=== PATIENT | female | born 1985 | race Caucasian/White ===

== ENCOUNTER 2016-05-08 11:26 | Emergency (ER) | payer MEDICAID ==
[2015-04-30 02:25] VITALS: BMI 43.0
[~2016-05-08 11:26] MED LIST: DEMEROL50 MG PO; IBUPROFEN600 MG PO
[2016-05-08 12:41] LABS: BASOPHILS 0.1 % (0.0-2.0); EOSINOPHILS 1.3 % (0-7); HEMATOCRIT 31.5 % (36.0-48.0); IMMATURE GRANULOCYTES 0.1 % (0-5); LYMPHOCYTES 21.1 % (15-50); MCH 26.6 pg (26.0-34.0); MCHC 31.7 g/dL (31.0-37.0); MCV 83.8 fL (80.0-100.0); MONOCYTES 4.5 % (2-11); NEUTROPHILS 72.9 % (40-80); PLATELET COUNT 282 10x3/uL (130-400); RBC 3.76 10x6/uL (4.00-5.40); RDW 13.9 % (11.5-14.5); WBC 11.5 10x3/uL (4.8-10.8)
[2016-05-08 13:06] LABS: ALBUMIN 2.4 g/dL (3.4-5.0); ALKALINE PHOSPHATASE 119 U/L (46-116); ALT (SGPT) 10 U/L (10-68); CALC OSMOLALITY 275 mosm/kg (275-300); CALCIUM 8.5 mg/dL (8.5-10.1); CHLORIDE - SERUM 107 mmol/L (98-107); CREATININE - SERUM 0.6 mg/dL (0.6-1.3); GLUCOSE 105 mg/dL (74-106); POTASSIUM - SERUM 3.5 mmol/L (3.5-5.1); PROTEIN - SERUM 6.6 g/dL (6.4-8.2); SODIUM 140 mmol/L (136-145); UREA NITROGEN 4 mg/dL (7-18); eGFR NON AFRICAN AMERICAN > 90 mL/min (90-120)
== END 2016-05-08 15:53 | disposition home or self-care (01) ==
LOC: D.ER 11:26
PROVIDERS: Emergency Medicine
DX: B34.9 Viral infection, unspecified (principal); F17.200 Nicotine dependence, unspecified, uncomplicated

== ENCOUNTER 2016-05-19 10:29 | Inpatient (IN) | payer MEDICAID ==
[~2016-05-19] VITALS: Ht 170.2 cm; Wt 124.7 kg
[2016-05-19] VITALS (10 sets, daily range): BP systolic 117–132; BP diastolic 58–81; Ht 170.2 cm; Wt 124.7 kg
[2016-05-19 10:51] LABS: HEMATOCRIT 34.1 % (36.0-48.0); HEMOGLOBIN 10.9 g/dL (12-16); MCH 26.7 pg (26.0-34.0); MCV 83.6 fL (80.0-100.0); MEAN PLATELET VOLUME 9.3 fL (7.4-10.4); RBC 4.08 10x6/uL (4.00-5.40); RDW 13.8 % (11.5-14.5)
[2016-05-19 11:05] LABS: HIV 1 & 2- RAPID SCREEN NEGATIVE (NEGATIVE)
[2016-05-19 12:32] LABS: APPEARANCE HAZY (CLEAR); BILIRUBIN NEGATIVE (NEGATIVE); COLOR YELLOW (YELLOW); GLUCOSE NEGATIVE (NEGATIVE); KETONE NEGATIVE (NEGATIVE); NITRITE NEGATIVE (NEGATIVE); PROTEIN NEGATIVE (NEGATIVE); UROBILINOGEN NORMAL (NORMAL)
[2016-05-19 12:35] LABS: BACTERIA MODERATE /hpf (NONE SEEN); LEUKOCYTE ESTERASE TRACE (NEGATIVE); RED CELLS - URINE OCC /hpf (0-5); WHITE CELLS - URINE 0-5 /hpf (0-5)
--- NOTE | 2016-05-19 14:17 | NUR ---
BABY GIRL BORN AT [address] AT 1400 5.9 OZ 19.25 INCH
--- NOTE | 2016-05-19 15:04 | NUR ---
PALPATED FUNDUS FIRM AND MIDLINE
--- NOTE | 2016-05-19 16:57 | NUR ---
PT IS RECEIVED FROM RECOVERY LYING IN BED. SHE IS AWAKE AND ALERT. LUNGS- CLEAR. HEART- RRR. ABD- SOFT, TENDER, FUNDUS FIRM UMBILICUS. EXT- NO EDEMA. SCD'S INTACT. PULSES PALPABLE. IV INTACT AND PATENT R FOREARM. POWELL INTACT AND SECURED R THIGH. INCISION - WITH BULKY DRESSING . CLEAN DRY AND INTACT. ICE PACK APPLIED. PT INSTRUCTED ON BOTTOMING ROOM SUPERVISOR, POWELL, SCD'S, INCENTIVE DONTRELL AND TURNING COUGHING AND DEPP BREATHING. PT IS ON A CLEAR LIQUID DIET.
--- NOTE | 2016-05-19 17:10 | NUR ---
PT IS RESTING IN BED. FAMILY AT BEDSIDE. PT OFFERS NO COMPLAINTS AT THIS TIME. SHE IS WAITING TO SEE HER BABY BEFORE TAKING PAIN MEDICATION. NO NAUSEA OR VOMITING. DRINKING WATER.
--- NOTE | 2016-05-19 17:16 | NUR ---
BABY IS IN ROOM. MOTHER IS BABY.
--- NOTE | 2016-05-19 18:20 | NUR ---
PTS BED PADS AND DEBBIE PADS CHANGED. MODERATE LOCIA RUBRA. CLEANED PT WITH SOAP AND WATER. NEW PADS APPLIED. DRESSING CLEAN DRY AND INTACT. FUNDUS FIRM. AND BABY AT BEDSIDE. BED IS LOW, CALL LIGHT IN REACH AND SIDE RAILS UP X2
--- NOTE | 2016-05-19 19:05 | NUR ---
PM ROUNDS MADE, PT IS BABY, INFORMED PT THAT I WILL DO ASSESSMENT WHEN SHE IS FINISHED WITH , PT VERBALIZES UNDERSTANDING, DENIES NEEDS AT THIS TIME, FOB AND FAMILY IN ROOM
--- NOTE | 2016-05-19 20:15 | NUR ---
CORRECTION: IV IN RIGHT FA, NOT LEFT FA
--- NOTE | 2016-05-19 20:15 | NUR ---
ASSESSMENT PER FLOW SHEET, VS OBTAINED, IV IN LEFT FA INTACT WITH NO REDNESS OR EDEMA INFUSING VIA PUMP NS WITH PITOCIN AT 125 ML/HR, DEMEROL LIBRARY CLERICAL ASSISTANT TO DELIVER 10MG/10MINS PER PTS DEMAND FOR PAIN CONTROL, PT RATES INC PAIN 10/01, STATES "IT'S NOT BAD, I KNOW WHEN I NEED TO PUSH MY BUTTON", FF, ML, U/1, MOD BLEEDING WITH 1 QUARTER SIZE CLOT NOTED, DEBBIE CARE DONE WITH WET WARM WASH CLOTHS, BLUE CHUX AND DEBBIE PAD CHANGED, POWELL CATH INTACT, DRAINING DARK YELLOW URINE, EMPTIED 150 MLS FROM POWELL CHAMBER TO POWELL BAG, ENC PT TO DRINK PLENTY OF FLUIDS, PT REPORTS DRINKING WATER, ESPECIALLY AFTER , STATES "IT SEEMS TO MAKE ME THIRSTY", PT DENIES FLATUS, SCD SLEEVES NOTED TO BE ON, BUT NOT CONNECTED TO PUMP AT THIS TIME, SCD'S CONNECTED TO PUMP AND WORKING PROPERLY, PT REQUESTED AND PROVIDED LANOLIN CREAM, PT DENIES FURTHER NEEDS, BABY TO PT'S ARMS FOR FEEDING, FOB AND OTHER CHILD AT BEDSIDE, DINNER TRAY AND TRASH REMOVED
--- NOTE | 2016-05-19 20:15 | NUR ---
CORRECTION ON NURSES NOTE: IV IN RIGHT WRIST
--- NOTE | 2016-05-19 21:05 | NUR ---
PT AWAKE, BABY AT BEDSIDE IN OPEN CRIB CART, FOB AND OTHER CHILD AT BEDSIDE, PT DENIES NEEDS AT THIS TIME
--- NOTE | 2016-05-19 22:00 | NUR ---
PT RESTING, PT STATES "THAT CATHETER IS REALLY UNCOMFORTABLE, I FEEL LIKE I EITHER PEE'ED MYSELF OR ITS JUST BLOOD", REMOVED OLD STAT LOCK FOR POWELL, LITE BLEEDING NOTED AT THIS TIME WITH NO CLOTS, DEBBIE CARE AND POWELL CARE DONE WITH WET WARM WASH CLOTHS, DEBBIE PAD CHANGED, GOWN APPLIED, FRESH TOP SHEET PLACED WITH BLANKET, PT RATES INC PAIN 10/01, BUTTON TO PT'S HAND TO PUSH AT THIS TIME, PT REFUSES, STATES "I REALLY DON'T WANT TO USE IT", ENC PT TO USE DUE TO PAIN LEVEL, PT STATES "I WILL IF I FEEL LIKE I NEED TO USE IT", ICE PACK TO ABD, SCD'S CONTINUE ON AND WORKING PROPERLY, ENC PT TO DRINK PLENTY OF FLUIDS, 12 HOUR POST OP POC DISCUSSED WITH PT, PT VERY EXCITED TO HAVE POWELL REMOVED SOON POSSIBLE, INFORMED PT THAT I WILL COME IN AROUND 4AM WHEN I DO VITALS TO REMOVED POWELL AND SALINE LOCK IV, PT VERBALIZES UNDERSTANDING, PT DENIES FURTHER NEEDS, BABY IN OPEN CRIB CART, FOB AND OTHER CHILD AT BEDSIDE
--- NOTE | 2016-05-20 00:30 | NUR ---
PT BABY AT THIS TIME, STATES "I'M ALMOST DONE", EMPTIED POWELL CATH AT THIS TIME, INFORMED PT THAT I WILL BE BACK IN A FEW MINUTES, FOB AT BEDSIDE
[2016-05-20 00:40] VITALS: BP 104/65
--- NOTE | 2016-05-20 00:40 | NUR ---
BABY TO NSY VIA OPEN CRIB CART PER THIS RN, VS OBTAINED, DEBBIE CARE DONE WITH WET WARM WASH CLOTHS, LITE BLEEDING NOTED WITH NO CLOTS, BLUE CHUX AND DEBBIE PAD CHANGED, FRESH ICE PACK TO ABD, ENC PT TO PUSH [employer] PRINCIPAL SOLUTION SPECIALIST BUTTON, PT REFUSES, WHEN I ASKED IF THERE WAS A REASON TO WHY, SHE REPORTS SHE JUST DOESN'T LIKE IT, INFORMED PT THAT I WILL THEN JUST TURN IT OFF AND ADM PAIN MED BY MOUTH, PT VERBALIZES UNDERSTANDING, FOB AT BEDSIDE
--- NOTE | 2016-05-20 00:56 | NUR ---
TOOK DEMEROL AND MOTRIN PO TO PT FOR PAIN CONTROL, PT CONTINUES TO REFUSE PAIN MED, ENC PT TO TAKE THE MOTRIN, PT ASKED WHAT MG IT WAS, AND I TOLD HER THAT IT WAS 600 MG, PT STATES "OH, I DON'T NEED THAT MUCH", INFORMED PT THAT IS WHAT IS ORDERED, AND WHEN I INFORMED PT THAT IT WAS NOT A NARCOTIC, PT THEN TOOK THE MOTRIN, INFORMED PT THAT IF SHE CHANGES HER MIND AND DECIDES ON PAIN MED, TO USE CALL LIGHT, PT VERBALIZES UNDERSTANDING, DENIES FURTHER NEEDS AT THIS TIME
--- NOTE | 2016-05-20 02:11 | NUR ---
PT RESTING WITH EYES CLOSED, RESP QUIET, NO DISTRESS NOTED, LEFT UNDISTURBED AT THIS TIME, FOB ASLEEP IN RECLINER
--- NOTE | 2016-05-20 03:30 | NUR ---
PT RESTING WITH EYES CLOSED, AROUSES TO SOFT VERBAL STIMULATION, BABY TO ROOM VIA OPEN CRIB CART PER THIS RN, BANDS VERIFIED, INFORMED PT THAT I WILL REMOVE FOLYE AND SALINE LOCK IV WHEN FINISHED , PT VERBALIZES UNDERSTANDING, STATES "I'M GLAD YOU HAVE ME THAT IBUPROFEN, IT REALLY HELPED ME TO SLEEP", TALKED TO PT ABOUT TAKING PAIN MED ALSO, PT VERBALIZES UNDERSTANDING, WILL LET ME KNOW WHEN AND IF SHE DECIDES, DENIES NEEDS, FOB AT BEDSIDE
[2016-05-20 04:13] LABS: RAPID PLASMA REAGIN Non Reactive (Non Reactive)
[2016-05-20 04:42] VITALS: BP 120/59
--- NOTE | 2016-05-20 04:42 | NUR ---
PT FINISHED , VS OBTAINED, WILL REMOVE POWELL AND SALINE LOCK IV, FOB CHANGING BABIES DIAPER AT THIS TIME
--- NOTE | 2016-05-20 04:50 | NUR ---
IV CONVERTED TO SALINE LOCK, FLUSHED WITH 10MLS OF NS WITH NO DIFFICULTY, POWELL CATH D/C'ED, TIP INTACT, DEBBIE CARE DONE WITH WET WARM WASH CLOTHS, LITE VAG BLEEDING NOTED WITH NO CLOTS, FRESH ICE PACK TO ABD, PT INST TO USE CALL LIGHT WHEN NEEDING TO GET UP TO VOID, PT VERBALIZES UNDERSTANDING, REQUESTED AND SERVED PUDDING, DENIES FURTHER NEEDS, FOB AND BABY AT BEDSIDE
--- NOTE | 2016-05-20 06:00 | NUR ---
PT UP TO BR WITH FOB, PT VOIDED 200MLS OF BLOOD TINGED URINE, 1 QUARTER SIZE CLOT NOTED, PT BACK IN BED, DENIES NEEDS AT THIS TIME
--- NOTE | 2016-05-20 06:43 | NUR ---
LAB TO ROOM FOR BLOOD DRAW
--- NOTE | 2016-05-20 07:20 | NUR ---
PATIENT IS RESTING WITH HOB LOW, LIGHTS OUT. FOB IS SLEEPING IN THE BEDSIDE CHAIR. CALL LIGHT IS WITHIN REACH, DID NOT DISTURB AT THIS TIME.
--- NOTE | 2016-05-20 07:49 | OP ---
PATIENT NAME: SENAIT SUNSHINE MEDICAL RECORD: [id number] LOCATION:[facility] D.[id number] ADMISSION DATE:05/19/16 SURGEON: NIKKI LOPEZ MD DATE OF OPERATION: 05/19/2016 PREOPERATIVE DIAGNOSES: 1. Intrauterine at 39 weeks and 1 day. 2. Previous times 1. 3. Refused trial of labor for repeat. POSTOPERATIVE DIAGNOSES: 1. Intrauterine at 39 weeks and 1 day. 2. Previous times 1. 3. Refused trial of labor for repeat. 4. Delivered. SURGEON: Nikki Lopez MD ANESTHESIA: Spinal anesthesia with Phil Bryan CRNA. PROCEDURE: Repeat low transverse with vacuum assistance. FINDINGS: Delivery of viable female from vertex presentation via repeat low transverse with vacuum assistance under spinal anesthesia at 1359 p.m. with weight of 5 pounds 9 ounces and scores of 9 and 9 at 1 and 5 minutes respectively. No nuchal cord was noted. The cord was clamped and cut. The infant was bulb suctioned and handed to awaiting pediatric nursing personnel. The placenta was delivered manually intact with 3-vessel cord at 1400 p.m. Twenty units of Pitocin and 1 liter of normal saline was begun IV. The fundus was noted to be firm. A moderate amount of adhesive disease was noted, otherwise normal-appearing uterus, ovaries and tubes bilaterally. The patient went to the recovery room in stable condition, the infant to the nursery. DESCRIPTION OF PROCEDURE: After informed consent was given, the patient was taken to the operating room where spinal anesthesia was placed and found to be adequate. She was placed in a dorsal supine position with a leftward tilt. A Cruz catheter was placed with clear urine return noted. She was prepped and draped sterilely. A Pfannenstiel skin incision was then made through her previous scar and carried down to the underlying layer of fascia. The fascia was incised in the midline and the fascial incision extended bilaterally with the Iqbal scissors. The superior portion of the fascial incision was grasped with 2 Gilson clamps. The rectus muscles dissected off sharply and bluntly. Attention was then turned to the inferior portion of the fascial incision, which was again grasped with 2 Gilson clamps and the rectus muscles dissected off sharply and bluntly. The rectus muscles were in the midline, the peritoneum identified and grasped with 2 hemostats. It was then entered sharply with the Metzenbaum scissors. This incision was extended superiorly and inferiorly with good visualization of the bladder. The bladder blade was inserted and the vesicouterine peritoneum was grasped with smooth pickups and entered sharply with Metzenbaum scissors. This incision was extended bilaterally and a bladder flap was created digitally. The bladder blade was replaced. The vertex was then palpated in the lower uterine segment and the buttocks palpated into the maternal upper left of the fundus. The hysterotomy was then created with the knife and this was extended bilaterally OPERATIVE REPORT [id number] SENAIT SUNSHINE L bluntly and the was delivered atraumatically with vacuum assistance. No nuchal cord was noted. The cord was clamped times 2 and cut. The infant was bulb suctioned and handed to awaiting pediatric nursing personnel. The placenta was then delivered manually and passed off the field as specimen. Cord blood was obtained. The uterus was exteriorized, cleared of all clots and debris. The interior of the uterus was wiped with a moist lap sponge. The hysterotomy was closed in 2 layers with 0 chromic in a running locked fashion, the second layer imbricating the first. One additional imbricating suture was required with excellent hemostasis then noted. The uterus was returned to the abdomen. The abdomen was irrigated profusely and noted to be hemostatic. Kenna dust was placed over the hysterotomy to aid additionally in hemostasis. The rectus muscles were reapproximated in the midline with 3 interrupted chromic sutures. The fascia was closed with 0 Vicryl in a running fashion, locking the first suture. The subcutaneous tissue was irrigated, any bleeders cauterized with the Bovie and when noted to be sufficiently dry, it was closed in 2 layers with 3-0 Vicryl in a running fashion. The skin was closed with 3-0 Monocryl in a subcuticular fashion with Dermabond and pressure dressings applied atop. Excellent hemostasis was noted. The fundus was noted to be firm at completion of the procedure and the urine was also noted to be clear at completion of the procedure. The patient tolerated the procedure well. Sponge, lap, needle, and instrument counts were reported correct times 2 and the patient went to recovery room in stable condition and the infant to the nursery. ESTIMATED BLOOD LOSS: 800 cc. URINE OUTPUT: 200 cc. SPECIMENS: Placenta and cord blood. COMPLICATIONS: None. TRANSINT:[id number] Voice Confirmation ID: [id number] DOCUMENT ID: [id number] NIKKI LOPEZ MD at 0749 CC: [id number] DICTATION DATE: 05/19/16 1517 HEAT TREAT FURNACE OPERATOR: 05/19/16 1730 ADM IN [place] [id number] [place] [address]
--- NOTE | 2016-05-20 08:15 | NUR ---
PATIENT USED CALL LIGHT TO SUMMON NURSE. SHE IS SITTING UP ON THE BEDSIDEIN HER PANTIES. SHE STAT ESHTAT SHE FEELS THE URGE TO URINATE AND REQUESTS THAT THE COLLECTION HAT BE EMPTIED. IT HAD 900CC OF PALE YELLOW URINE. JOSE REFUSED MY ASSISTANCE GETTING UP. STATES THAT SHE AND HER HAVE A PRACTICED "MOTION" TO GET UP. THIS WILL BE HER THIRD TIME TO BE OOB TO THE RESTROOM.
[2016-05-20 08:30] VITALS: BP 114/36
--- NOTE | 2016-05-20 08:30 | NUR ---
ASSESSMENT COMPLETE. PATIENT STATES THAT HER PAIN IS MANAGABLE AND DENIES THE NEED FOR NARCOTIC PAIN MEDICATION. EXPLAINED THE PROPERTIES OF TORADOL AND THE ANTI INFLAMMATORY EFFECT WELL ANALGESIC EFFECT WITHOUT THE SIDE EFFECTS THAT CAN ACCOMPANY THE DEMEROL. SHE STATES THAT SHE WOULD LIKE TO TAKE A MOTRIN PRIOR TO TAKING A SHOWER BUT REFUSES ALL MEDICATIONS AT THIS TIME.
[2016-05-20 09:13] LABS: BASOPHILS 0.1 % (0.0-2.0); EOSINOPHILS 0.3 % (0-7); HEMATOCRIT 31.6 % (36.0-48.0); IMMATURE GRANULOCYTES 0.2 % (0-5); MCH 26.4 pg (26.0-34.0); MCHC 31.6 g/dL (31.0-37.0); MCV 83.4 fL (80.0-100.0); MONOCYTES 6.3 % (2-11); NEUTROPHILS 78.1 % (40-80); PLATELET COUNT 264 10x3/uL (130-400); RBC 3.79 10x6/uL (4.00-5.40); WBC 10.5 10x3/uL (4.8-10.8)
--- NOTE | 2016-05-20 09:25 | NUR ---
PATIENT OUT WALKING IN THE HALLWAY TO THE IPG. FOB AND TODDLER ACCOMPANY HER. SHE DENIES UNCONTROLLED PAIN AND IS SMILING THROUGHOUT CONVERSATION. DENIES OTHER NEEDS AT WELL. STATES THAT SHE IS GOING TO REST AND WILL SHOWER AFTER A WHILE.
--- NOTE | 2016-05-20 10:15 | NUR ---
ASAF WITHOUT STATED NEEDS.
--- NOTE | 2016-05-20 11:22 | NUR ---
ASAF IS SITTING UP IN HER BED, HI FOWLERS, HER INFANT. SHE DENIES NEEDS BUT EXPRESSED DESIRE TO HAVE HER SL REMOVED FROM RIGHT HAND DUE TO IS CAUSING HER DISCOMFORT. WILL DO SO WHEN SHE IS FINISHED FEEDING INFANT. FOB AND TODDLER SON RESTING IN THE BEDSIDE CHAIR WITH EYES CLOSED. CALL LIGHT IS WITHIN HER REACH. SHE DENIES UNCONTROLLED PAIN, IS SMILING THROUGHOUT CONVERSATION. DENIES ANY NEEDS AT ALL.
--- NOTE | 2016-05-20 11:54 | NUR ---
IV REMOVEDFROM THE RIGHT WRIST AREA. HER SKIN IS PINK AND IRRITATED FROM THE TAPE. SHE IS PREPARING TO GET UP TO THE RESTROOM. REQUESTED PANTIES AND PERIPADS. SUPPLIED. SHE STATE SHAT HER BLEEDING HAS NEARLY STOPPED, SHE IS SIMPLY SPOTTING AT THIS TIME. SHE STILL HAS HER BULKY DRESSING TO THE INCISION. SHE PLANS TO WALK HER INFANT TO THE NURSERY AND THEN TO THE CAFETERIA ACCOMPANIED BY FOB. ENCOURAGED HER TO TAKE HER TIME, TO NOT OVER DO THE ACTIVITY. SHE STATE STHAT SHE DID THESE THINGS AFTER HER FIRST AND WISHES TO AGAIN. STATES THAT HE WILL GET A WHEELCHAIR AT THE VISITOR'S DESK IF THEY NEED ONE. CONTINUED TO REFUSE PAIN MEDICATION. [facility].
--- NOTE | 2016-05-20 12:33 | NUR ---
PATIENT RESTING IN HER BED, HOB UP 30 DEGREES. VSS. SHE HAS EATEN HER LUNCH AND DENIES NEEDS AT THIS TIME. REMINDED HER TO CALL FOR ASSISTANCE WHEN SHE IS READY TO GET UP TO THE SHOWER.
[2016-05-20 12:37] VITALS: BP 114/57
--- NOTE | 2016-05-20 13:18 | NUR ---
PATIENT OUT AMBULATING IN THE HALLWAY. SHE REFUSES A MOTRIN. SHE IS ACCOMPANIED BY FOB, MOTHER AND A MALE VISITOR.
--- NOTE | 2016-05-20 13:39 | NUR ---
PATIENT HAS RETURNED TO HER ROOM. SHE WALKED OUT TO THE FRONT ENTRANCE DOORS AND BACK. SHE IS SMILING AND STATES THAT SHE IS DOING FINE. DENIES NEEDS. REFUSES ANY ASSISTANCE.
--- NOTE | 2016-05-20 14:20 | NUR ---
FAMILY VISITING AT THE BEDSIDE. NO NOTED NEEDS.
--- NOTE | 2016-05-20 15:49 | NUR ---
PATIENT RESTING IN HER BED, HOB UP 30 DEGREES. SHE HAS HER RESTING ON HER CHEST, TODDLER SLEEPING AT THE FOOT OF THE BED. FOB AT THE BEDSIDE ASSISTING HER WITH REARRANGING THE . REQUESTED MORE PILLOWS. DENIED OTHER NEEDS, REFUSING PAIN MEDICATIONS AND DENIES THAT SHE IS READY TO GET INTO THE SHOWER JUST YET. ENCOURAGED TO CALL FOR ANY ASSISTANCE SHE MAY NEED.
--- NOTE | 2016-05-20 16:40 | NUR ---
PATIENT RESTING QUIETLY IN HER BED, FOB AND TODDLER RESTING AT THE BEDSIDE. DENIES NEEDS.
[2016-05-20 17:00] VITALS: BP 129/79
--- NOTE | 2016-05-20 17:56 | NUR ---
PATIENT IS SITTING UP IN HI FOWLERS. SHE IS EATING HER SUPPER AND DENIES PAIN AT THIS TIME. SHE WISHES TO WAIT UNTIL AFTER HER SHOWER TO TAKE A MOTRIN. I'D OFFERED TO GIVE IT TO HER SINCE SHE HAS FOOD ON HER STOMACH. SHE STATES THAT WALKING HASN'T INCREASED HER PAIN LEVEL AND SHE WOULD LIKE TO WAIT A BIT. SHE IS USING IMIGARY AND A PILLOW TO SPLINT HER COUGHS. SHE DENIED ANY NEEDS AT THIS TIME. CALL LIGHT IS WITHIN HER REACH. SHE WANTS TO TAKE HER SHOWER JUST BEFORE GOING TO SLEEP TONIGHT. SHE WANTS "TO SHOWER, CRAWL IN BED AND GO TO SLEEP." FOB AND TODDLER ARE AT THE BEDSIDE.
--- NOTE | 2016-05-20 18:40 | NUR ---
PATIENT REQUESTED [facility] FOR A SHOWER. PROVIDED, SET UP HER SHOWER WITH A SHOWER CHAIR IN THE SHOWER. PROVIDED BODY WASH WELL. FOB PROVIDING STAND BY ASSIST. ENCOURAGED HER TO SATURATE HER BANDAGE SO THAT IT CAN BE REMOVED EASILY PRIOR TO WASHING
--- NOTE | 2016-05-20 19:25 | NUR ---
BANDAGE REMOVED FROM INCISION. EDGES ARE WELL APPROXIMATED AND THERE IS NO SIGN OF INFECTION. INCISION CARE DISCUSSED. PERIPAD APPLIED TO INCISION AND PANTIES APPLIED. LINENS COMPLETEY CHANGED. FOB AND HER MOTHER AT [facility] BEDSDIE INTERACTING WITH AND TODDLER.
--- NOTE | 2016-05-20 19:30 | NUR ---
PT AMBULATING IN [place]. STATES "IM GOING OUTSIDE TO GET MY DIAPER BAG". ADVISED PT TO USE WHEELCHAIR NEEDED. PT STATES "ILL USE IT ON THE WAY BACK". PT ACCOMPANIED BY FAMILY MEMBERS AT THIS TIME. APPEARS TO TOLERATE AMBULATION WELL WITH SLOW, STEADY GAIT AND LITTLE/NO STOOPING.
--- NOTE | 2016-05-20 19:45 | NUR ---
PT RETURNED FROM AMBULATING IN WHEELCHAIR. STATES "I WALKED OUTSIDE BUT I GOT TIRED WHEN I GOT BACK INSIDE". ADVISED PT THAT NURSE WILL BE IN TO DO ASSESS/VITALS SAMEER.
[2016-05-20 19:50] VITALS: BP 127/91
--- NOTE | 2016-05-20 19:50 | NUR ---
SHIFT ASSESSMENT AND VITAL SIGNS DONE. ABDOMEN SOFT WITH BOWEL SOUNDS X 4 QUADS. PT DENIES PASSING GAS BUT STATES "I AM HAVING GAS PRESSURE". LOW TRANSVERSE INCISION WITH DERMABOND CLEAN/DRY. PERIPAD IN PLACE OVER INCISION. PT STATES LOCHIA IS SCANT/RUBRA. FUNDUS AT U2/MIDLINE. PT C/O NIPPLE SORENESS. DISCUSSED PROPER POSITIONING OF INFANT, LATCHING, AND USE OF LANOLIN CREAM. PT REQUESTS MOTRIN. STATES "I DONT WANT ANY PAIN MEDS, JUST MOTRIN". SCDS OFF AND PT REMINDED TO REPLACE THEM/CALL FOR ASSISTANCE AT HS. NO OTHER COMPLAINTS AT THIS TIME.
--- NOTE | 2016-05-20 20:00 | NUR ---
MOTRIN 600MG PO GIVEN AT THIS TIME FOR LEVEL 4 PAIN. NO OTHER COMPLAINTS AT THIS TIME. PT NURSING INFANT WITH FAMILY AT BEDSIDE.
--- NOTE | 2016-05-20 20:48 | NUR ---
PAIN REASSESSMENT DONE. PAIN AT LEVEL 2. PT SITTING UP IN BED VISITING WITH FOB/SON. INFANT AT BEDSIDE.
--- NOTE | 2016-05-20 22:00 | NUR ---
ROOM CHECK DONE. PT ASLEEP ON BACK. SR UP X 2. FOB AT BEDSIDE. DENIES ANY REQUESTS AT THIS TIME.
--- NOTE | 2016-05-20 22:45 | NUR ---
SCD PUMP SHOWING KINK IN HOSE. STRAIGHTENED HOSES BILATERALLY. PUMP APPEARS TO BE WORKING FINE AT THIS TIME. PT ASLEEP AND ROUSED EASILY. DENIES ANY COMPLAINTS/REQUESTS.
[2016-05-21 00:40] VITALS: BP 122/65
--- NOTE | 2016-05-21 00:40 | NUR ---
VITAL SIGNS DONE. FOB AT BEDSIDE. PT ASLEEP BUT EASILY AROUSED. STATES SHE IS DOING FINE. NO S/S OF DISTRESS NOTED.
--- NOTE | 2016-05-21 03:30 | NUR ---
ROOM CHECK DONE. PT DID NOT ROUSE WHEN NURSE ENTERED ROOM. FOB REQUESTS ADDITONAL BLANKET. PROVIDED PER HIS REQUEST. NO OTHER REQUESTS AT THIS TIME.
--- NOTE | 2016-05-21 04:45 | NUR ---
SCD PUMP MALFUNCTION. SHOWS LEG SLEEVE ON LEFT LEG IS NOT WORKING CORRECTLY. REMOVED LEG SLEEVES AND STRAIGHTENED BILATERALLY. PUMP APPEARS TO BE WORKING CORRECTLY AT THIS TIME. PT AWAKENED PARTIALLY WHILE SLEEVES WERE REPLACED BUT QUICKLY CLOSED EYES/WENT BACK ASLEEP. FOB DENIES ANY COMPLAINTS AT THIS TIME.
[2016-05-21 05:30] VITALS: BP 112/76
--- NOTE | 2016-05-21 05:30 | NUR ---
VITAL SIGNS DONE. PT STATES "I SLEPT GOOD. THATS WHAT MEDS DO TO ME. I CANT EVEN TAKE A TYLENOL WITHOUT IT KNOCKING ME OUT". NO COMPLAINTS AT THIS TIME. WILL CALL FOR ASSISTANCE PRN.
--- NOTE | 2016-05-21 06:19 | NUR ---
ROOM CHECK. PT LYING IN BED WATCHING TV. FOB ASLEEP AT BEDSIDE. LEMOM/INAJA SODA PROVIDED. NO OTHER REQUESTS AT THIS TIME.
--- NOTE | 2016-05-21 07:15 | NUR ---
PT RESTING EASILY WITH EYES CLOSED, LIGHTS DIM. LEFT UNDISTURBED AT THIS TIME. SIG OTHER AT BEDSIDE.
[2016-05-21 07:58] VITALS: BP 113/63
--- NOTE | 2016-05-21 08:01 | NUR ---
PT AWAKE, ALERT, ORIENTED, CHEERFUL DEMEANOR, SITTING UP IN BED FOR BREAKFAST. VSS. LOW TRANSVERSE ABD INC C/D/I WITH DERMABOND. COVERED WITH DEBBIE PAD FOR COMFORT. NO HEAVY BLEEDING. NO NEEDS AT THIS TIME. D/C ORDER REC'D. WILL D/C WHEN READY LATER THIS AFTERNOON. MESH PANTIES AND PADS PROVIDED.
--- NOTE | 2016-05-21 08:07 | NUR ---
DISCUSSED TDAP WITH PT. HAS HAD FLU SHOT FOR THIS YEAR.
--- NOTE | 2016-05-21 08:08 | NUR ---
AFTER DISCUSSION PT DECLINED TDAP.
--- NOTE | 2016-05-21 08:14 | NUR ---
PT DECLINED NICODERM PATCH.
[2016-05-21] MEDS ORDERED: IBUPROFEN600 MG PO (08:30)
[2016-05-21] MEDS ORDERED: MEPERIDINE HCL50 MG PO (08:30)
--- NOTE | 2016-05-21 09:25 | NUR ---
RESTING IN BED HOLDING . NO NEEDS.
--- NOTE | 2016-05-21 10:21 | NUR ---
PT AMBULATED TO NURSERY AND BACK WITH SIG OTHER. RET'S WITH WHO IS IN OPEN CRIB.
--- NOTE | 2016-05-21 11:07 | NUR ---
D/C INSTRUCTIONS EXPLAINED TO PT. VOICED UNDERSTANDING. COPIES OF ALL GIVEN, WELL WRITTEN RX'S FOR MOTRIN 600 MG AND DEMEROL [address] BERNARD. AWAITING 'S DC.
--- NOTE | 2016-05-21 11:15 | NUR ---
PT C/O GAS PAIN. ENCOURAGED AMBULATION. MYLICON ONE GIVEN. OFFERED SUPPOSITORY BUT SHE DECLINED.
--- NOTE | 2016-05-21 12:30 | NUR ---
D/C'D HOME WITH , VIA WC TO PRIVATE CAR.
== END 2016-05-21 12:48 | disposition home or self-care (01) | DRG 765 ==
LOC: D.LD → D.WS 10:29 → D.LD 10:29 → D.WS 15:22 → D.LD 17:02 → D.WS 05-21 12:48
PROVIDERS: ADMIT Specialist
PROC: 10D00Z1 Extraction of Products of Conception, Low, Open Approach (ICD-10-PCS; principal; 2016-05-19 12:00)
DX: O99.824 Streptococcus B carrier state complicating childbirth (principal); O36.5930 Maternal care for other known or suspected poor fetal growth, third trimester, not applicable or unspecified; Z3A.39 39 weeks gestation of pregnancy; Z37.0 Single live birth; O34.219 Maternal care for unspecified type scar from previous cesarean delivery; O99.334 Smoking (tobacco) complicating childbirth; O99.214 Obesity complicating childbirth; E66.01 Morbid (severe) obesity due to excess calories

== ENCOUNTER 2017-06-02 20:41 | Emergency (ER) | payer MEDICAID ==
[2016-05-19 10:30] VITALS: BMI 43.2
[~2017-06-02 20:41] MED LIST changes: +MEPERIDINE HCL50 MG PO
[2017-06-02 21:11] LABS: HEMOGLOBIN 12.3 g/dL (12-16); LYMPHOCYTES 48.7 % (15-50); MCH 26.6 pg (26.0-34.0); MCHC 32.4 g/dL (31.0-37.0); MCV 82.3 fL (80.0-100.0); MEAN PLATELET VOLUME 8.7 fL (7.4-10.4); NEUTROPHILS 45.7 % (40-80); PLATELET COUNT 284 10x3/uL (130-400); RBC 4.62 10x6/uL (4.00-5.40); RDW 13.4 % (11.5-14.5); WBC 8.3 10x3/uL (4.8-10.8)
[2017-06-02 21:32] LABS: HCG SERUM NEGATIVE (NEGATIVE)
[2017-06-02 21:41] LABS: ALBUMIN 3.8 g/dL (3.4-5.0); ALKALINE PHOSPHATASE 109 U/L (46-116); ALT (SGPT) 17 U/L (10-68); AMYLASE - SERUM 21 U/L (25-115); BILIRUBIN - TOTAL 0.11 mg/dL (0.2-1.3); CALC OSMOLALITY 276 mosm/kg (275-300); CALCIUM 8.9 mg/dL (8.5-10.1); CARBON DIOXIDE 26.7 mmol/L (21.0-32.0); CHLORIDE - SERUM 102 mmol/L (98-107); CREATININE - SERUM 0.9 mg/dL (0.6-1.3); GLUCOSE 95 mg/dL (74-106); LIPASE 82 U/L (73-393); POTASSIUM - SERUM 3.3 mmol/L (3.5-5.1); PROTEIN - SERUM 7.9 g/dL (6.4-8.2); SODIUM 139 mmol/L (136-145); UREA NITROGEN 11 mg/dL (7-18); eGFR NON AFRICAN AMERICAN 78 mL/min (90-120)
[2017-06-02 22:18] LABS: APPEARANCE SLT CLOUDY (CLEAR); BILIRUBIN NEGATIVE (NEGATIVE); COLOR YELLOW (YELLOW); GLUCOSE NEGATIVE (NEGATIVE); KETONE NEGATIVE (NEGATIVE); NITRITE NEGATIVE (NEGATIVE); PROTEIN NEGATIVE (NEGATIVE); SPECIFIC GRAVITY 1.015 (1.005-1.020); UROBILINOGEN NORMAL (NORMAL)
== END 2017-06-02 22:45 | disposition home or self-care (01) ==
LOC: D.ER 20:41
PROVIDERS: Family Medicine
DX: R10.11 Right upper quadrant pain (principal)

== ENCOUNTER → 2017-06-08 08:54 | Outpatient (CLI) | payer MEDICAID ==
[2016-05-19 10:30] VITALS: BMI 43.2
== END | disposition home or self-care (01) ==
LOC: D.US 08:54
DX: R10.9 Unspecified abdominal pain (principal)

== ENCOUNTER 2017-09-12 07:23 | Outpatient (CLI) | payer MEDICAID ==
[~2017-09-12] VITALS: Ht 170.2 cm; Wt 119.7 kg
[2017-09-12 08:25] LABS: BASOPHILS 0.1 % (0-2); EOSINOPHILS 2.7 % (0-7); HEMOGLOBIN 11.3 g/dL (12-16); IMMATURE GRANULOCYTES 0.1 % (0-5); MCH 27.2 pg (26.0-34.0); MCHC 32.3 g/dL (31.0-37.0); MCV 84.1 fL (80.0-100.0); MEAN PLATELET VOLUME 9.4 fL (7.4-10.4); NEUTROPHILS 60.1 % (40-80); PLATELET COUNT 240 10x3/uL (130-400); RBC 4.16 10x6/uL (4.00-5.40)
[2017-09-12 08:34] VITALS: Ht 170.2 cm; Wt 119.7 kg
[2017-09-12 08:47] LABS: HCG URINE NEGATIVE (NEGATIVE)
[2017-09-12 08:58] LABS: CALC OSMOLALITY 274 mosm/kg (275-300); CALCIUM 8.4 mg/dL (8.5-10.1); CARBON DIOXIDE 26.8 mmol/L (21.0-32.0); CHLORIDE - SERUM 106 mmol/L (98-107); CREATININE - SERUM 0.7 mg/dL (0.6-1.3); GLUCOSE 89 mg/dL (74-106); POTASSIUM - SERUM 3.7 mmol/L (3.5-5.1); SODIUM 140 mmol/L (136-145); UREA NITROGEN 5 mg/dL (7-18); eGFR NON AFRICAN AMERICAN > 90 mL/min (90-120)
== END 2017-09-12 10:49 | disposition home or self-care (01) ==
LOC: D.OPS 07:23 → D.PAN 10:30 → EDSTATUS 10:40 → D.OPS 10:40 → D.PAN 13:30
PROVIDERS: Surgery
DX: K80.20 Calculus of gallbladder without cholecystitis without obstruction (principal); Z01.812 Encounter for preprocedural laboratory examination; Z53.29 Procedure and treatment not carried out because of patient's decision for other reasons

== ENCOUNTER 2018-12-12 20:56 | Emergency (ER) | payer MEDICAID ==
[~2018-12-12] VITALS: Ht 170.2 cm; Wt 113.6 kg
[2018-12-12 20:59] VITALS: Ht 170.2 cm; Wt 113.6 kg
[2018-12-12 21:44] LABS: APPEARANCE CLEAR (CLEAR); BILIRUBIN NEGATIVE (NEGATIVE); COLOR YELLOW (YELLOW); GLUCOSE NEGATIVE (NEGATIVE); KETONE SMALL mg/dL (NEGATIVE); NITRITE NEGATIVE (NEGATIVE); PROTEIN NEGATIVE (NEGATIVE); SPECIFIC GRAVITY 1.015 (1.005-1.020); UROBILINOGEN NORMAL (NORMAL)
[2018-12-12 21:46] LABS: BACTERIA FEW /hpf (NONE SEEN); HCG URINE NEGATIVE (NEGATIVE); RED CELLS - URINE OCC /hpf (0-5); WHITE CELLS - URINE OCC /hpf (0-5)
[2018-12-12 22:00] LABS: BASOPHILS 0.2 % (0-2); EOSINOPHILS 2.3 % (0-7); HEMATOCRIT 33.4 % (36.0-48.0); HEMOGLOBIN 10.9 g/dL (12-16); IMMATURE GRANULOCYTES 0.1 % (0-5); LYMPHOCYTES 31.3 % (15-50); MCH 26.5 pg (26.0-34.0); MCHC 32.6 g/dL (31.0-37.0); MCV 81.3 fL (80.0-100.0); MEAN PLATELET VOLUME 9.1 fL (7.4-10.4); MONOCYTES 6.6 % (2-11); NEUTROPHILS 59.5 % (40-80); PLATELET COUNT 259 10x3/uL (130-400); RBC 4.11 10x6/uL (4.00-5.40); RDW 14.8 % (11.5-14.5); WBC 8.4 10x3/uL (4.8-10.8)
[2018-12-12 22:18] LABS: ALKALINE PHOSPHATASE 66 U/L (46-116); ALT (SGPT) 14 U/L (10-68); BILIRUBIN - TOTAL 0.12 mg/dL (0.2-1.3); CALC OSMOLALITY 279 mosm/kg (275-300); CALCIUM 8.2 mg/dL (8.5-10.1); CARBON DIOXIDE 30.2 mmol/L (21.0-32.0); CHLORIDE - SERUM 106 mmol/L (98-107); CREATININE - SERUM 0.9 mg/dL (0.6-1.3); GLUCOSE 101 mg/dL (74-106); POTASSIUM - SERUM 3.6 mmol/L (3.5-5.1); PROTEIN - SERUM 6.7 g/dL (6.4-8.2); SODIUM 142 mmol/L (136-145); UREA NITROGEN 5 mg/dL (7-18); eGFR NON AFRICAN AMERICAN 77 mL/min (90-120)
[2018-12-12 23:53] VITALS: BP 136/82
== END 2018-12-12 22:42 | disposition home or self-care (01) ==
LOC: D.ER 20:56
PROVIDERS: Emergency Medicine
DX: F41.9 Anxiety disorder, unspecified (principal); R42 Dizziness and giddiness

== ENCOUNTER → 2020-09-15 14:50 | Outpatient (CLI) | payer OTHER ==
[2018-12-12 20:59] VITALS: BMI 39.2
== END | disposition home or self-care (01) ==
LOC: D.US 14:50
PROVIDERS: ATTEND Family Medicine
DX: N63.14 Unspecified lump in the right breast, lower inner quadrant (principal)

== ENCOUNTER 2020-10-13 14:35 | Outpatient (CLI) | payer OTHER ==
[2018-12-12 20:59] VITALS: BMI 39.2
== END 2020-10-13 23:59 | disposition home or self-care (01) ==
LOC: D.MAMMO 14:35
PROVIDERS: ATTEND Family Medicine
DX: N63.15 Unspecified lump in the right breast, overlapping quadrants (principal)